=== PATIENT | female | born 1950 | race Caucasian/White ===

== ENCOUNTER 2016-12-01 11:07 | Outpatient (CLI) | payer MEDICARE ==
--- NOTE | 2016-12-01 14:29 | MMO ---
BILATERAL DIGITAL SCREENING MAMMOGRAMS WITH CAD COMPARISON: 11/24/2015, 11/20/2014, and 12/10/2013. FINDINGS: There are scattered fibroglandular densities. No suspicious masses, calcifications, or architectura l distortion seen. IMPRESSION: BI-RADS Category 1: Negative. Routine annual mammographic screening is recommended . POS: [facility]
== END 2016-12-01 11:08 | disposition home or self-care (01) ==
LOC: SCSMAMMO 11:07
PROVIDERS: ATTEND Family Medicine
DX: Z12.31 Encounter for screening mammogram for malignant neoplasm of breast (principal)
CPT/HCPCS: 77067; G0202

== ENCOUNTER 2017-12-16 13:10 | Outpatient (CLI) | payer MEDICARE ==
--- NOTE | 2017-12-16 14:42 | MMO ---
BILATERAL MAMMOGRAMS: DATE: 12/16/17 HISTORY: Screening mammography. COMPARISON: Multiple exams back to 10/30/12. FINDINGS: Fatty replaced tissue. No dominant mass or suspicious calcifications. The study was evaluated with the assistance of computer-aided detection. IMPRESSION: BIRADS 1: Negative Suggest routine follow-up. POS: [facility]
== END 2017-12-16 13:11 | disposition home or self-care (01) ==
LOC: SCSMAMMO 13:10
PROVIDERS: ATTEND Family Medicine
DX: Z12.31 Encounter for screening mammogram for malignant neoplasm of breast (principal)
CPT/HCPCS: 77067

== ENCOUNTER 2022-01-06 10:34 | Outpatient (CLI) | payer MEDICARE ==
[2022-01-06 13:00] LABS: #Basophils 0.1 10x3/uL (0.0-0.2); #Eosinphils 0.2 10x3/uL (0.0-0.5); #Monocytes 0.6 10x3/uL (0.0-1.1); #Neutrophils 3.5 10x3/uL (1.5-8.4); %Basophils 0.9 % (0.0-2.0); %Eosinophils 3.3 % (0.0-6.0); %Lymphocytes 20.3 % (18.0-47.0); %Monocytes 10.9 % (0.0-10.0); %Neutrophils 64.4 % (40.0-75.0); Hemoglobin 13.9 g/dL (12.0-15.5); Mean Corpuscular HGB CONC 35.1 g/dL (32.0-36.0); Mean Corpuscular Hemoglobin 32.7 pg (27.0-33.0); Mean Corpuscular Volume 93.2 fl (81.6-98.3); Mean Platelet Volume 9.3 fl (7.4-10.4); Platelet Count 296 10x3/uL (150-450); RBC Distribution Width 12.6 % (11.5-14.5); Red Blood Cell (RBC) Count 4.25 10x6/uL (3.90-5.03); White Blood Cell (WBC) Count 5.4 10x3/uL (3.5-10.5)
== END 2022-01-06 10:35 | disposition home or self-care (01) ==
LOC: LABBT 10:34
PROVIDERS: ATTEND Orthopaedic Surgery Hand Surgery
DX: Z01.818 Encounter for other preprocedural examination (principal); G56.02 Carpal tunnel syndrome, left upper limb; M18.12 Unilateral primary osteoarthritis of first carpometacarpal joint, left hand; M67.432 Ganglion, left wrist
CPT/HCPCS: 85025; 93005; 93010

== ENCOUNTER 2022-01-08 06:22 | Day surgery (SDC) | payer MEDICARE ==
[2022-01-07 13:48] VITALS: BMI 29.8
[2022-01-08] MEDS ORDERED: FENTANYL 50 MCG/ML 1 ML VIAL ONE (09:25)
[2022-01-08] MEDS ORDERED: fentaNYL PF 100 MCG/2 ML SYRINGE ONE (09:28)
[2022-01-08] MEDS ORDERED: CEFAZOLIN 2 GM VIAL ONE (09:31)
[2022-01-08] MEDS ORDERED: Sodium Chloride 0.9% 100 ML ONE (09:31)
[2022-01-08] MEDS ORDERED: Dexamethasone 20 MG/5 ML VIAL ONE (09:39)
[2022-01-08] MEDS ORDERED: Ropivacaine 0.5% HCl/PF (150 MG/30 ML VIAL) ONE (09:39)
[2022-01-08] MEDS ORDERED: Ondansetron PF 4 MG/2 ML Vial ONE (09:39)
[2022-01-08] MEDS ORDERED: ePHEDrine 50 MG/ML VIAL ONE (09:39)
[2022-01-08] MEDS ORDERED: PROPOFOL 200 MG/20 ML VIAL ONE (09:39)
[2022-01-08] MEDS ORDERED: Bacitracin Zinc Ointment 30 gm TUBE ONE (10:14)
[2022-01-08] MEDS ORDERED: Neomycin-Polymyxin 1 ML AMP ONE (10:14)
[2022-01-08] MEDS ORDERED: Ketorolac Tromethamine 30 MG/ML VIAL ONE (12:56)
== END 2022-01-08 14:29 | disposition home or self-care (01) ==
LOC: SDC 06:22
PROVIDERS: ATTEND Orthopaedic Surgery Hand Surgery
PROC: 01N50ZZ Release Median Nerve, Open Approach (ICD-10-PCS; principal; 2022-01-08)
PROC: 0RBP0ZZ Excision of Left Wrist Joint, Open Approach (ICD-10-PCS; 2022-01-08)
PROC: 0RUT07Z Supplement Left Carpometacarpal Joint with Autologous Tissue Substitute, Open Approach (ICD-10-PCS; 2022-01-08)
DX: M18.0 Bilateral primary osteoarthritis of first carpometacarpal joints (principal); M67.432 Ganglion, left wrist; G56.03 Carpal tunnel syndrome, bilateral upper limbs; G56.22 Lesion of ulnar nerve, left upper limb; E03.9 Hypothyroidism, unspecified; I10 Essential (primary) hypertension; Z79.890 Hormone replacement therapy; Z79.899 Other long term (current) drug therapy
CPT/HCPCS: 25111; 25310; 25447; 64721; 73120; C1776; C1894; J3010; 88304; J1100; J1885; J2405; J2704; J2795; J3490

== ENCOUNTER 2022-10-05 12:37 | Outpatient (CLI) | payer MEDICARE | END 2022-10-05 12:38 | disposition home or self-care (01) | LOC: SCSMRI 12:37 | PROVIDERS: ATTEND Orthopaedic Surgery Hand Surgery | DX: M87.04 Idiopathic aseptic necrosis of hand and fingers (principal); M77.8 Other enthesopathies, not elsewhere classified ==

== ENCOUNTER 2023-01-14 08:02 | Outpatient (CLI) | payer MEDICARE | END 2023-01-14 08:03 | disposition home or self-care (01) | LOC: ULT 08:02 | PROVIDERS: ATTEND Internal Medicine | DX: R10.11 Right upper quadrant pain (principal); K76.0 Fatty (change of) liver, not elsewhere classified; R93.2 Abnormal findings on diagnostic imaging of liver and biliary tract | CPT/HCPCS: 76700 ==

== ENCOUNTER 2024-09-17 09:51 | Outpatient (CLI) | payer MEDICARE | END 2024-09-17 09:52 | disposition home or self-care (01) | LOC: SCSRAD 09:51 | PROVIDERS: ATTEND Nurse Practitioner Family | DX: S89.92XA Unspecified injury of left lower leg, initial encounter (principal); Z87.81 Personal history of (healed) traumatic fracture ==